=== PATIENT | female | born 1990 | race Asian ===

== ENCOUNTER → 2020-11-28 | Outpatient (CLI) | payer SELFPAY ==
[~2020-11-28] MED LIST: COVID-19 VACC, MRNA(MODERNA)/PF 100 MCG/0.5 ML VIAL IM ONE
== END | disposition home or self-care (01) ==
LOC: VACCPMC 08:00
DX: Z23 Encounter for immunization (principal); Z20.822 Contact with and (suspected) exposure to COVID-19
CPT/HCPCS: 0011A; 91301

== ENCOUNTER → 2020-12-26 | Outpatient (CLI) | payer OTHER | LOC: VACCPMC 12-25 11:10 | DX: Z20.822 Contact with and (suspected) exposure to COVID-19 (principal) | CPT/HCPCS: 91301 ==